=== PATIENT | female | born 1950 | race Caucasian/White ===

== ENCOUNTER 2017-03-13 11:24 | Outpatient (CLI) | payer BC | END 2017-03-13 11:25 | disposition home or self-care (01) | LOC: SC 11:24 | PROVIDERS: ATTEND Nurse Practitioner Family | DX: G47.33 Obstructive sleep apnea (adult) (pediatric) (principal) | CPT/HCPCS: 99212; 99214 ==

== ENCOUNTER 2018-07-03 09:05 | Outpatient (CLI) | payer MEDICARE | END 2018-07-03 09:06 | disposition home or self-care (01) | LOC: SC 09:05 | PROVIDERS: ATTEND Nurse Practitioner Family | DX: G47.33 Obstructive sleep apnea (adult) (pediatric) (principal) | CPT/HCPCS: 99214; G0463; 99212 ==

== ENCOUNTER 2020-08-15 08:54 | Outpatient (CLI) | payer MEDICARE ==
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
--- OUTSIDE RECORDS SUMMARY | 2020-08-23 20:59 | EXTERNAL MEDICAL SUMMARY RPT | Continuity of Care Document ---
:1950 Demographics Phone Unavailable Preferred Language [place] Citizen Marital Status Unknown Buddhist Affiliation Unknown Race Unknown Ethnic Group Unknown Author Organization [facility] Address [address] [phone] Phone Care Team Providers Name Role Phone Miscellaneous Unavailable Unavailable Garde Unavailable Unavailable Problems date description facility [id number] Contact with and (suspected) exposure t o COVID-19 [facility] 20200808 Encounter for preprocedural laboratory examination [facility] 20200809 Polyp of corpus uteri [facility] 20200809 Postmenopausal bleeding [facility] Procedures date description facility [id number] [facility] date description facility [id number] [facility] date description facility [id number] [facility] date description facility [id number] [facility] date description facility [id number] [facility] Vital Signs date measurement value source 20200725 BMI 43.7 kg/m2 20200725 BP_diastolic 78 mm[Hg] 20200725 BP_systolic 142 mm[Hg] 20200725 heart_rate 76 /min 20200725 height_metric 160.02 cm 20200725 height_standard 63 in 20200725 weight_metric 112.03 kg 20200725 weight_standard 246.98 lb 20200725 BMI 43.7 kg/m2 20200725 BP_diastolic 78 mm[Hg] 20200725 BP_systolic 142 mm[Hg] 20200725 heart_rate 76 /min 20200725 height_metric 160.02 cm 20200725 height_standard 63 in 20200725 weight_metric 112.03 kg 20200725 weight_standard 246.98 lb date measurement value source 20200809 BMI 43.7 kg/m2 20200809 BP_diastolic 78 mm[Hg] 20200809 BP_systolic 154 mm[Hg] 20200809 heart_rate 57 /min 20200809 height_metric 160.02 cm 20200809 height_standard 63 in 20200809 respiration_rate 16 /min 20200809 temperature_metric 36.67 C 20200809 temperature_standard 98 F 20200809 weight_metric 50.82 kg 20200809 weight_standard 112.04 lb Social History date description facility [id number]
== END 2020-08-15 08:55 | disposition home or self-care (01) ==
LOC: SC 08:54
PROVIDERS: ATTEND Internal Medicine Pulmonary Disease
DX: G47.33 Obstructive sleep apnea (adult) (pediatric) (principal); E66.01 Morbid (severe) obesity due to excess calories; Z68.41 Body mass index [BMI] 40.0-44.9, adult
CPT/HCPCS: 99212; G0463

== ENCOUNTER 2020-10-24 13:34 | Outpatient (CLI) | payer MEDICARE ==
--- NOTE | 2020-10-24 16:03 | SLEEP CARE CONSULTATION ---
Information from patient questionnaire entered by Opal Butts. I have reviewed and concur with the information entered by Opal Butts. This document represents the service I personally performed and the decisions made by me, Elise De Los Santos MD, [facility]. History of Present Illness Service Date and Time: 10/24/2020 1334 Previous diagnosis: Extremely Severe, Obstructive Sleep Apnea-Hypopnea Syndrome AHI: 95.4 (in 2009) Reason for follow up: first compliance after device update Equipment type: BiPAP Equipment obtained from: [facility] Mask style: Full face Prior sleep studies: Yes Year and Where: 2009 - [facility] Sleep Type of Sleep Study: Polysomnography HPI additional information: HPI: Ms. Roger was diagnosed to have severe (AHI 95.4) obstructive sleep apnea- hypopnea syndrome in 2009 and returned today for her annual follow up of BiPAP therapy. The patient recently acquired a new BiPAP from [facility]. She uses an Venessa View mask. She has a backup mask. The compliance data show usage in 30 out of the past 30 nights, averaging 9.3 hours a night. The BiPAP is set at 22/18 cmH2O. The residual AHI is 8 (was 1.4 on her old device set at 25/22 cmH2O). The average time in large leak per day is 0 seconds. She complains of insomnia where it takes her a while to fall asleep. According to the compliance data, she goes to sleep around 10 11 pm and gets up 7 11 am. CPAP Compliance Data - Data Reviewed with Patient Average duration of nightly device use: 9 hr 17 min Compliance rate %: 100 Current pressure setting (cmH2O): 22/18 Humidity settin Heated hose settin Average residual AHI: 8.0 Average large leak: 0 Subjective Patient concerns: reports: mask leak noise Initial [place] Sleepiness Scale score: 15 (in 2009) Current [place] Sleepiness Scale score: 3 Allergies and Home Medications Drug allergies reviewed: Yes Home medication list reviewed: Yes Review of Systems Review of systems same as previous: Yes Physical Exam Height: 5 ft 4 in Weight: 240 lb Body Mass Index: 41.1 BMI Classification: Morbidly Obese Impression and Plan IMPRESSION: 1. Obstructive Sleep Apnea-Hypopnea Syndrome, very severe, with the patient continuing to have good treatment compliance. The lower pressure setting appears to not be quite adequate. I will raise it to 23/19 cmH2O. I showed her other full face masks. 2. Insomnia, due to excessive time spent in bed as seen on the compliance report. The patient was advised to get up at 7 am every day, including weekend s. She should not go to bed any earlier than 11 pm. PLAN: 1. Pressure raised to 23/19 cmH2O via the modem. 2. Try newer full face masks, e.g. ResMed F30 and ResMed AirTouch F-20 full face mask. 3. Try to lose more weight. 4. Maintain a regular wake up time and spend no more than 8 hours in bed at night. Avoid naps. 5. Return for follow up in a year or earlier if there is any problem. Counseling Topics: Weight control Visit Type: In Office Time Spent with Patient (minutes): 20 Provider Statement: I spent 100% of the Face to Face Visit with the patient with greater than 50% spent counseling the patient and coordination of care.
== END 2020-10-24 13:35 | disposition home or self-care (01) ==
LOC: SC 13:34
PROVIDERS: ATTEND Internal Medicine Pulmonary Disease
DX: G47.33 Obstructive sleep apnea (adult) (pediatric) (principal); E66.01 Morbid (severe) obesity due to excess calories; Z68.41 Body mass index [BMI] 40.0-44.9, adult
CPT/HCPCS: 99213; G0463; 99212